=== PATIENT | female | born 1985 | race Caucasian/White ===

== ENCOUNTER 2019-12-21 12:36 | Emergency (ER) | payer BC ==
[~2019-12-21] VITALS: Ht 170.2 cm; Wt 75.7 kg
[2019-12-21 12:44] VITALS: BP 111/72
--- NOTE | 2019-12-21 12:45 | NUR ---
c/o left ear pressure x 3 days,denies pain. Patient a/ox4, breathing even and unlabored, no sob noted, needs attended, kept comfortable.
--- NOTE | 2019-12-21 13:47 | NUR ---
LEFT EAR IRRIGATED.
== END 2019-12-21 14:06 | disposition home or self-care (01) ==
LOC: ER 12:40
DX: H61.22 Impacted cerumen, left ear (principal)

== ENCOUNTER 2021-05-27 11:08 | Emergency (ER) | payer BC, MEDICAID ==
[~2021-05-27] VITALS: Ht 170.2 cm; Wt 79.4 kg
--- NOTE | 2021-05-27 11:22 | NUR ---
URINE SPECIMEN COLLECTED AND SENT TO LAB.
--- NOTE | 2021-05-27 11:44 | NUR ---
BIBS TO ER BED 12. AAOX4. NOT IN RESP DISTRESS. AMBULATORY. CAME IN FOR FEELING ANXIOUS BECAUSE THERE IS ALOT OF THINGS THAT SHE IS THINKING ABOUT. PT IS NOTED ANXIOUS. DENIES ANY THOUGHTS OF HARMING HERSELF NOR OTHERS. PT PROVIDED A NICE QUITE CALM ENVIRONMENT. AWAITING MD FOR EVAL.
[2021-05-27] MEDS ORDERED: LORAZEPAM 1 MG TABLET PO ONE (12:00)
[2021-05-27 12:09] LABS: BASOPHILS # (AUTO) 0.1 K/uL (0.0-0.2); BASOPHILS % (AUTO) 0.7 % (0.0-2.0); EOSINOPHILS % (AUTO) 3.7 % (0.0-6.0); HEMATOCRIT 41 % (33-45); HEMOGLOBIN 13.8 g/dL (11.5-14.8); LYMPHOCYTES # (AUTO) 1.4 K/uL (0.8-4.8); MEAN CORPUSCULAR HGB CONC 34 g/dl (31.0-36.0); MEAN CORPUSCULAR VOLUME 91 fL (82-100); MONOCYTES # (AUTO) 0.5 K/uL (0.1-1.30); MONOCYTES % (AUTO) 4.7 % (2.0-12.0); NEUTROPHILS # (AUTO) 7.5 K/uL (1.8-8.9); NEUTROPHILS % (AUTO) 76.9 % (43.0-81.0); PLATELET COUNT (AUTO) 327 K/uL (150-450); RED BLOOD CELL COUNT(AUTO) 4.52 MIL/uL (4.0-5.2); WHITE BLOOD COUNT (AUTO) 9.7 K/uL (4.3-11.0)
[2021-05-27 12:17] LABS: BILIRUBIN,URINE Negative (NEGATIVE); COLOR,URINE YELLOW (YELLOW); LEUKOCYTE ESTERASE ,URINE Negative (NEGATIVE); NITRITE, URINE Negative (NEGATIVE); PROTEIN,URINE 30 mg/dl (NEGATIVE); UGLUCOSE Negative (NEGATIVE); UROBILINOGEN,URINE 0.2 EU/dL (0.2)
[2021-05-27 12:22] LABS: CALCIUM, SERUM 8.9 mg/dL (8.5-10.1); CARBON DIOXIDE 26 mmol/L (21-32); CHLORIDE 102 mmol/L (98-107); CREATININE 0.7 mg/dL (0.6-1.3); GLUCOSE 109 mg/dL (74-106); POTASSIUM 3.9 mmol/L (3.5-5.1); SODIUM SERUM 138 mmol/L (136-145); UREA NITROGEN, BLOOD 6 mg/dL (7-18)
[2021-05-27 12:36] LABS: ALANINE AMINOTRANSFERASE 29 U/L (12-78); ALBUMIN 4.2 g/dL (3.4-5.0); ALKALINE PHOSPHATASE 72 U/L (46-116); ASPARTATE AMINOTRANSFERASE 16 U/L (15-37); BILIRUBIN,DIRECT 0.1 mg/dL (0.0-0.2); BILIRUBIN,TOTAL 0.4 mg/dL (0.2-1.0); TOTAL PROTEIN, SERUM 7.9 g/dL (6.4-8.2)
[2021-05-27] MEDS ORDERED: LORAZEPAM 1 MG TABLET ONE (12:50)
[2021-05-27 13:00] LABS: ACETAMINOPHEN < 2 ug/ml (10-30); ALCOHOL, BLOOD < 3 mg/dL (0-0)
--- NOTE | 2021-05-27 17:40 | NUR ---
PT IS PSYCHIATRICALLY CLEARED BY JASON APTEL. RESOURCES WAS PROVIDED TO THE PT BY JORGE.
--- NOTE | 2021-05-27 17:56 | NUR ---
Patient discharged to home in stable condition. Written and verbal after care instructions given. Patient verbalizes understanding of instruction. Pt ambulatory with a steady gait
[2021-05-27 17:57] VITALS: BP 118/75
[2021-05-28] MEDS ORDERED: LORA-259 PO (09:35)
== END 2021-05-27 17:58 | disposition home or self-care (01) ==
LOC: ER 11:10
DX: F30.9 Manic episode, unspecified (principal); Z20.822 Contact with and (suspected) exposure to COVID-19
CPT/HCPCS: 36415; 80048; 80076; 80143; 80307; 80320; 81003; 84703; 85025; 87426; 99283; C9803; G0480

== ENCOUNTER 2021-05-28 09:05 | Emergency (ER) | payer MEDICAID ==
[~2021-05-28] VITALS: Ht 170.2 cm; Wt 81.6 kg
--- NOTE | 2021-05-28 09:05 | NUR ---
PT BIBRA FROM HOME FOR VOLUNTARY ADMISSION TO [facility]. PT IS AAOX4, NOT IN RESPIRATORY DISTRESS, V/S STABLE, KEPT RESTED AND COMFORTABLE. SITTER AT BEDSIDE. WILL CONTINUE TO MONITOR.
--- NOTE | 2021-05-28 09:23 | NUR ---
URINE SPECIMEN COLLECTED AND SENT TO LAB.
[2021-05-28] MEDS ORDERED: LORA-259 PO (09:35)
--- NOTE | 2021-05-28 09:43 | NUR ---
Patient discharged to home in stable condition. Written and verbal after care instructions given. Patient verbalizes understanding of instruction.
[2021-05-28 09:44] VITALS: BP 121/78
== END 2021-05-28 09:44 | disposition home or self-care (01) ==
LOC: ER 09:09
DX: F41.9 Anxiety disorder, unspecified (principal); F32.9 Major depressive disorder, single episode, unspecified; Z60.2 Problems related to living alone